=== PATIENT | male | born 2000 | race Two or more races ===

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

== ENCOUNTER 2018-01-28 19:53 | Emergency (ER) | payer MEDICAID ==
[~2018-01-28] VITALS: Ht 182.9 cm; Wt 63.5 kg
[2018-01-28 20:23] VITALS: BP 138/83
[2018-01-28 20:53] LABS: Basophils # (auto) 0 uL; Basophils % (auto) 0.8 % (0.0-2.0); Eosinophils # (auto) 0.1 uL; Eosinophils % (auto) 1.2 % (0.0-7.0); Hematocrit 45.5 % (41.0-53.0); Hemoglobin 15.9 g/dL (13.5-17.5); Lymphocytes # (auto) 1.8 uL; Lymphocytes % (auto) 39.1 % (10.0-50.0); Mean Corpuscular Volume 91.6 fL (80.0-100.0); Monocytes # (auto) 0.4 uL; Monocytes % (auto) 9.6 % (0.0-12.0); Neutrophils # (auto) 2.3 uL; Neutrophils % (auto) 49.3 % (37.0-80.0); Nucleated Red Blood Cells % 0.2 %; Platelet Count (auto) 260 10^3/uL (140-450); Red Blood Cells 4.96 10^6/uL (4.5-5.90); Red Cell Distribution Width 13.1 % (11.8-14.3); White Blood Cell 4.6 10^3/uL (4.4-10.8)
[2018-01-28 21:21] LABS: Potassium 3.6 mmol/L (3.5-5.1)
[2018-01-28 21:25] LABS: Albumin 4.4 g/dL (3.4-5.0); BUN/Creatinine Ratio 9.5; Calcium 9.1 mg/dL (8.5-10.1)
[2018-01-28 21:28] LABS: Bilirubin, Total 0.7 mg/dL (0.2-1.0); Total Protein 8.2 g/dL (6.4-8.2)
[2018-01-28 21:59] LABS: Urine Bacteria NONE SEEN /hpf (None Seen); Urine Blood Negative /uL (Negative); Urine Mucus MANY (None Seen); Urine Specific Gravity 1.028 (1.001-1.035); Urine WBC 6 /hpf (0 - 3)
== END 2018-01-29 01:07 | disposition home or self-care (01) ==
LOC: ER 19:53
DX: N50.812 Left testicular pain (principal); Z87.442 Personal history of urinary calculi
CPT/HCPCS: 36415; 76870; 80053; 81001; 85025